=== PATIENT | female | born 1990 | race African-American/Black ===

== ENCOUNTER 2018-04-17 20:11 | Emergency (ER) | payer OTHER ==
[~2018-04-17] VITALS: Ht 157.5 cm; Wt 99.8 kg
[~2018-04-17 20:11] MED LIST: BACTRIM DS TAB1 EACH PO; GLUCOPHAGE1000 MG; NORCO 5-325 TA1 EACH PO; YASMIN 28 TABL1 EACH
[2018-04-17] MEDS ORDERED: MOBIC7.5 MG PO (23:54)
[2018-04-17] MEDS ORDERED: NORFLEX100 MG PO (23:54)
[2018-04-17 23:58] VITALS: BP 109/49
== END 2018-04-18 00:02 | disposition home or self-care (01) ==
LOC: ER 20:11
DX: S39.012A Strain of muscle, fascia and tendon of lower back, initial encounter (principal); S29.012A Strain of muscle and tendon of back wall of thorax, initial encounter; R51 Headache; M25.571 Pain in right ankle and joints of right foot; M79.601 Pain in right arm; E11.9 Type 2 diabetes mellitus without complications; V89.2XXA Person injured in unspecified motor-vehicle accident, traffic, initial encounter; Y92.89 Other specified places as the place of occurrence of the external cause; Y93.89 Activity, other specified; Y99.8 Other external cause status

== ENCOUNTER 2019-05-01 16:13 | Emergency (ER) | payer OTHER ==
[~2019-05-01] VITALS: Ht 162.6 cm; Wt 90.7 kg
[~2019-05-01 16:13] MED LIST changes: +MOBIC7.5 MG PO; +NORFLEX100 MG PO
[2019-05-01 16:14] VITALS: BP 110/70
[2019-05-01] MEDS ORDERED: NORCO 5-325 TA1 EAC1 PO (16:42)
[2019-05-01] MEDS ORDERED: NORFLEX100 MG PO (16:42)
[2019-05-01] MEDS ORDERED: NAPROSYN500 MG PO (16:42)
== END 2019-05-01 16:45 | disposition home or self-care (01) ==
LOC: ER 16:13
DX: S16.1XXA Strain of muscle, fascia and tendon at neck level, initial encounter (principal); S29.011A Strain of muscle and tendon of front wall of thorax, initial encounter; G44.209 Tension-type headache, unspecified, not intractable; E11.9 Type 2 diabetes mellitus without complications; Z98.890 Other specified postprocedural states; Z79.84 Long term (current) use of oral hypoglycemic drugs; V49.59XA Passenger injured in collision with other motor vehicles in traffic accident, initial encounter; Y93.89 Activity, other specified; Y92.413 State road as the place of occurrence of the external cause; Y99.8 Other external cause status